=== PATIENT | male | born 1945 | race African-American/Black ===

== ENCOUNTER 2021-11-17 18:50 | Inpatient (IN) ==
[2021-11-17] MEDS ORDERED: SODIUM CHLORIDE 0.9% 1,000 ML IV STA ×2 (19:26→19:53)
[2021-11-17 19:30] LABS: Basophils % 0.2 % (0.0-0.8); Hematocrit 38.8 VOL% (42.0-52.0); Hemoglobin 12.6 GM/DL (14.0-18.0); Immature Granulocytes % 0.8 %; Immature Granulocytes Absolute 0.16 #; Lymphocytes # 0.9 10*3/uL (1.4-4.0); Lymphocytes % 4.4 % (21.2-54.2); Mean Corpuscular HGB Conc 32.5 GM/DL (32-36); Mean Corpuscular Volume 82.2 FL (87-102); Mean Platelet Volume 9.6 FL (9.6-12.0); Monocytes # 1.5 10*3/uL (0.11-0.8); Monocytes % 7.2 % (1.7-12.7); NRBC # 0.02 10*3/uL; Neutrophils % 87.4 % (38.7-73.9); Platelet Count 347 T/CUMM (130-400); Red Blood Count 4.72 MC/CUMM (3.8-5.5); Red Cell Distribution Width 17.1 % (9.3-17.3); White Blood Count 21.1 T/CUMM (4-12)
[2021-11-17 19:35] LABS: Bilirubin,Urine Negative (Negative); Blood, Urine Trace mg/dL (Negative); Glucose,Urine (UA) Negative (Negative); Ketones,Urine Negative (Negative); Nitrite,Urine Negative (Negative); Protein,Urine Negative (Negative); Urine Appearance Clear (Clear); Urine Color Yellow (Yellow); Urine Specific Gravity >= 1.030 (1.001-1.035); Urine Urobilinogen 0.2 eU/dL (<2.0)
[2021-11-17 19:37] LABS: Bacteria,Urine Occasional /HPF (Few); Hyaline Casts,Urine 7 /LPF (0-3); RBC,Urine 1 /HPF (0-4); Squamous Epithelial Cell,Urine Occasional /HPF (0-10)
[2021-11-17 19:49] LABS: Barbiturates Screen,Urine Negative (Negative); Benzodiazepines Screen,Urine Negative (Negative); Cannabinoid Screen,Urine Negative (Negative); Opiate Screen,Urine Negative (Negative); Phencyclidine Screen,Urine Negative (Negative)
[2021-11-17] MEDS ORDERED: cefTRIAXone 1,000 MG in SODIUM CHLORIDE 0.9% 100 ML IV STA (19:53)
[2021-11-17 19:58] LABS: Anisocytosis 1+; Band Neutrophils 1 % (0-10); Lymphocytes 6 % (20-55); Platelet Estimate Adequate; Total Cells Counted 100
[2021-11-17 20:11] LABS: Alanine Aminotransferase 18 U/L (16-61); Albumin 4.1 G/DL (3.4-5.0); Alkaline Phosphatase 98 U/L (45-117); Aspartate Amino Transferase 11 U/L (0-37); Blood Urea Nitrogen 222 MG/DL (7-18); Calcium 9.5 MG/DL (8.5-10.1); Carbon Dioxide 8 MMOL/L (21-32); Chloride 124 MMOL/L (98-107); Glucose 284 MG/DL (74-106); Osmolality,Calculated 376.4 MOS/KG (273-304); Sodium 147 MMOL/L (136-145); Total Protein 8.5 G/DL (6.4-8.2)
[2021-11-17 20:14] LABS: Potassium 8.1 MMOL/L (3.5-5.1)
[2021-11-17] MEDS ORDERED: INSULIN REGULAR 10 UNIT, CALCIUM GLUCONATE 1,000 MG in DEXTROSE 10% 250 ML IV ONE (20:23)
[2021-11-17] MEDS ORDERED: DEXTROSE 50% 25 GM/50 ML VIAL IV STA (20:31)
[2021-11-17] MEDS ORDERED: INSULIN REGULAR 100 UNIT/ML IV STA (20:31)
[2021-11-17 20:51] LABS: Arterial Base Excess iSTAT -20 MMOL/L (-2.5-2.5); Arterial Bicarbonate iSTAT 6.1 MMOL/L (20-26); Arterial O2 Saturation iSTAT 98 % (95-100); Arterial PCO2 iSTAT 15 MM HG (35-48); Arterial PO2 iSTAT 128 MM HG (80-95); Arterial Total CO2 iSTAT 7 MMO/L (23-27); Arterial pH iSTAT 7.208 (7.35-7.45)
[2021-11-17] MEDS ORDERED: SODIUM POLYSTYRENE SULFATE 15 GM/60 ML BOTTLE PO STA (21:56)
[2021-11-17] MEDS ORDERED: LACTATED RINGERS 1,000 ML IV ONE (22:00)
[2021-11-17] MEDS ORDERED: SODIUM BICARBONATE 50 MEQ/50 ML VIAL IV STA (22:00)
[2021-11-17] MEDS ORDERED: ALBUTEROL 2.5 MG/3 ML NEB RESP TX PRN (23:23)
[2021-11-17] MEDS ORDERED: ACETAMINOPHEN 325 MG TABLET PO PRN (23:28)
[2021-11-17] MEDS ORDERED: DOCUSATE SODIUM 100 MG CAPSULE PO PRN (23:28)
[2021-11-17] MEDS ORDERED: ONDANSETRON 4 MG/2 ML VIAL IV PRN (23:28)
[2021-11-17] MEDS: SODIUM BICARB INJ 150 MEQ in STERILE WATER INJ 1,000 ML IV SCH (23:35)
[2021-11-17 23:57] LABS: Calcium 9.3 MG/DL (8.5-10.1); Osmolality,Calculated 377.1 MOS/KG (273-304)
[2021-11-18 00:01] LABS: Potassium 6.7 MMOL/L (3.5-5.1)
[2021-11-18] MEDS ORDERED: SODIUM BICARBONATE 50 MEQ/50 ML VIAL IV ONE (00:04)
[2021-11-18] MEDS ORDERED: ALBUTEROL/IPRATROPIUM 3 ML NEB RESP TX SCH (01:00)
[2021-11-18 01:23] LABS: Basophils % 0.1 % (0.0-0.8); Hematocrit 35.8 VOL% (42.0-52.0); Hemoglobin 11.2 GM/DL (14.0-18.0); Immature Granulocytes % 0.8 %; Immature Granulocytes Absolute 0.16 #; Lymphocytes # 1.2 10*3/uL (1.4-4.0); Lymphocytes % 6.2 % (21.2-54.2); Mean Corpuscular HGB Conc 31.3 GM/DL (32-36); Mean Corpuscular Volume 85.9 FL (87-102); Monocytes # 1.9 10*3/uL (0.11-0.8); Monocytes % 9.8 % (1.7-12.7); Neutrophils % 83.1 % (38.7-73.9); Platelet Count 285 T/CUMM (130-400); Red Blood Count 4.17 MC/CUMM (3.8-5.5); Red Cell Distribution Width 17.3 % (9.3-17.3); White Blood Count 19.8 T/CUMM (4-12)
[2021-11-18 01:39] LABS: INR 1.1; PT Patient Result 11.9 SECS (10.1-12.1)
[2021-11-18 02:55] LABS: Albumin 3.7 G/DL (3.4-5.0); Bilirubin,Total 0.4 MG/DL (0.20-1.00); Calcium 9.3 MG/DL (8.5-10.1); Risk Ratio 3.31; Thyroid Stimulating Hormone 1.02 uIU/ml (0.358-3.74); Total Protein 7.9 G/DL (6.4-8.2); VLDL Cholesterol 23.8 MG/DL
[2021-11-18 03:07] LABS: Osmolality,Calculated 378.1 MOS/KG (273-304)
[2021-11-18] MEDS ORDERED: GLUCAGON 1 MG VIAL IM PRN (03:17)
[2021-11-18] MEDS ORDERED: DEXTROSE 10% 250 ML BAG IV PRN (03:17)
[2021-11-18 04:20] LABS: Arterial Base Excess iSTAT -11 MMOL/L (-2.5-2.5); Arterial Bicarbonate iSTAT 12.1 MMOL/L (20-26); Arterial O2 Saturation iSTAT 99 % (95-100); Arterial PCO2 iSTAT 21 MM HG (35-48); Arterial PO2 iSTAT 121 MM HG (80-95); Arterial Total CO2 iSTAT 13 MMO/L (23-27); Arterial pH iSTAT 7.367 (7.35-7.45)
[2021-11-18 04:44] LABS: ABG Base Excess -12.3 MMOL/L (-2.5-2.5); ABG HCO3 14.8 MMOL/L (20-26); ABG Oxygen Saturation 99.1 % (95-100); ABG PH 7.364 (7.35-7.45); ABG TCO2 10.5 MMOL/L (23-27)
[2021-11-18 04:49] LABS: ABG PCO2 20.4 MM HG (35-48)
[2021-11-18] MEDS ORDERED: INSULIN LISPRO 100 UNIT/ML SUBCUT SCH (06:00)
[2021-11-18 07:11] LABS: Calcium 9.2 MG/DL (8.5-10.1); Osmolality,Calculated 385.7 MOS/KG (273-304); Potassium 4.9 MMOL/L (3.5-5.1)
[2021-11-18] MEDS: SODIUM BICARB INJ 150 MEQ in STERILE WATER INJ 1,000 ML IV SCH ×3 (07:39→23:25)
[2021-11-18] MEDS ORDERED: MEROPENEM 500 MG in SODIUM CHLORIDE 0.9% 100 ML IV SCH (08:00)
[2021-11-18 11:00] LABS: Calcium 8.9 MG/DL (8.5-10.1); Osmolality,Calculated 374.9 MOS/KG (273-304); Potassium 4.1 MMOL/L (3.5-5.1)
[2021-11-18] MEDS: INSULIN LISPRO 100 UNIT/ML SUBCUT SCH ×3 (11:51→20:45)
[2021-11-18 14:43] LABS: Calcium 8.4 MG/DL (8.5-10.1); Osmolality,Calculated 370.3 MOS/KG (273-304); Potassium 3.5 MMOL/L (3.5-5.1)
[2021-11-18] MEDS: HEPARIN 5,000 UNIT/1 ML VIAL SUBCUT SCH (15:50)
[2021-11-18 18:01] LABS: Calcium 8.2 MG/DL (8.5-10.1); Osmolality,Calculated 357.4 MOS/KG (273-304); Potassium 3.4 MMOL/L (3.5-5.1)
[2021-11-19 04:07] LABS: Basophils % 0.1 % (0.0-0.8); Eosinophils # 0.1 10*3/uL (0.0-0.87); Hematocrit 29.5 VOL% (42.0-52.0); Immature Granulocytes % 0.5 %; Immature Granulocytes Absolute 0.08 #; Lymphocytes # 1.5 10*3/uL (1.4-4.0); Lymphocytes % 10.3 % (21.2-54.2); Mean Corpuscular HGB Conc 33.9 GM/DL (32-36); Mean Corpuscular Volume 79.5 FL (87-102); Mean Platelet Volume 9.8 FL (9.6-12.0); Monocytes # 0.8 10*3/uL (0.11-0.8); Monocytes % 5.2 % (1.7-12.7); Neutrophils % 82.9 % (38.7-73.9); Platelet Count 227 T/CUMM (130-400); Red Blood Count 3.71 MC/CUMM (3.8-5.5); Red Cell Distribution Width 16.1 % (9.3-17.3); White Blood Count 14.7 T/CUMM (4-12)
[2021-11-19] MEDS: HEPARIN 5,000 UNIT/1 ML VIAL SUBCUT SCH ×2 (04:13→16:43)
[2021-11-19 04:25] LABS: Alanine Aminotransferase 33 U/L (16-61); Albumin 2.9 G/DL (3.4-5.0); Alkaline Phosphatase 68 U/L (45-117); Aspartate Amino Transferase 36 U/L (0-37); Bilirubin,Total < 0.39 MG/DL (0.20-1.00); Blood Urea Nitrogen 146 MG/DL (7-18); Calcium 8.5 MG/DL (8.5-10.1); Carbon Dioxide 29 MMOL/L (21-32); Chloride 109 MMOL/L (98-107); Glucose 131 MG/DL (74-106); Osmolality,Calculated 339.6 MOS/KG (273-304); Potassium 3.1 MMOL/L (3.5-5.1); Sodium 146 MMOL/L (136-145)
[2021-11-19] MEDS ORDERED: POTASSIUM CHLORIDE 20 MEQ TABLET PO ONE (04:53)
[2021-11-19] MEDS: SODIUM BICARB INJ 150 MEQ in STERILE WATER INJ 1,000 ML IV SCH (07:36)
[2021-11-19] MEDS: INSULIN LISPRO 100 UNIT/ML SUBCUT SCH ×4 (07:36→20:16)
[2021-11-19] MEDS: LACTATED RINGERS 1,000 ML IV SCH ×2 (09:41→23:52)
[2021-11-19] MEDS ORDERED: VANCOMYCIN INJ 1,500 MG in SODIUM CHLORIDE 0.9% 500 ML IV ONE (10:30)
[2021-11-20] MEDS: HEPARIN 5,000 UNIT/1 ML VIAL SUBCUT SCH ×2 (04:30→16:22)
[2021-11-20 06:22] LABS: Basophils % 0.2 % (0.0-0.8); Eosinophils # 0.1 10*3/uL (0.0-0.87); Eosinophils % 1.1 % (0.00-10.9); Hematocrit 30.6 VOL% (42.0-52.0); Hemoglobin 10.2 GM/DL (14.0-18.0); Immature Granulocytes % 0.9 %; Lymphocytes # 1.2 10*3/uL (1.4-4.0); Mean Corpuscular HGB Conc 33.3 GM/DL (32-36); Mean Corpuscular Volume 81.6 FL (87-102); Mean Platelet Volume 9.9 FL (9.6-12.0); Monocytes # 0.8 10*3/uL (0.11-0.8); Monocytes % 7.1 % (1.7-12.7); Neutrophils % 80.7 % (38.7-73.9); Platelet Count 201 T/CUMM (130-400); Red Blood Count 3.75 MC/CUMM (3.8-5.5); Red Cell Distribution Width 15.9 % (9.3-17.3); White Blood Count 11.5 T/CUMM (4-12)
[2021-11-20 06:42] LABS: Alanine Aminotransferase 29 U/L (16-61); Albumin 2.9 G/DL (3.4-5.0); Alkaline Phosphatase 67 U/L (45-117); Aspartate Amino Transferase 24 U/L (0-37); Bilirubin,Total < 0.39 MG/DL (0.20-1.00); Blood Urea Nitrogen 90 MG/DL (7-18); Calcium 8.5 MG/DL (8.5-10.1); Carbon Dioxide 29 MMOL/L (21-32); Chloride 111 MMOL/L (98-107); Glucose 201 MG/DL (74-106); Osmolality,Calculated 321.7 MOS/KG (273-304); Potassium 3.3 MMOL/L (3.5-5.1); Sodium 145 MMOL/L (136-145); Total Protein 5.8 G/DL (6.4-8.2)
[2021-11-20] MEDS: INSULIN LISPRO 100 UNIT/ML SUBCUT SCH ×4 (08:00→21:02)
[2021-11-20] MEDS ORDERED: POTASSIUM CHLORIDE 20 MEQ TABLET PO ONE (09:42)
[2021-11-20] MEDS: LACTATED RINGERS 1,000 ML IV SCH ×3 (10:20→17:20)
[2021-11-21] MEDS: HEPARIN 5,000 UNIT/1 ML VIAL SUBCUT SCH ×2 (04:44→16:00)
[2021-11-21] MEDS: LACTATED RINGERS 1,000 ML IV SCH ×2 (04:48→18:16)
[2021-11-21 05:19] LABS: Basophils % 0.3 % (0.0-0.8); Eosinophils # 0.2 10*3/uL (0.0-0.87); Eosinophils % 2.1 % (0.00-10.9); Hemoglobin 9.9 GM/DL (14.0-18.0); Immature Granulocytes % 0.9 %; Immature Granulocytes Absolute 0.09 #; Lymphocytes # 1.5 10*3/uL (1.4-4.0); Lymphocytes % 14.2 % (21.2-54.2); Mean Corpuscular HGB Conc 31.9 GM/DL (32-36); Mean Corpuscular Volume 84.5 FL (87-102); Mean Platelet Volume 9.7 FL (9.6-12.0); Monocytes # 0.8 10*3/uL (0.11-0.8); Monocytes % 7.6 % (1.7-12.7); Neutrophils % 74.9 % (38.7-73.9); Platelet Count 190 T/CUMM (130-400); Red Blood Count 3.67 MC/CUMM (3.8-5.5); White Blood Count 10.4 T/CUMM (4-12)
[2021-11-21 05:35] LABS: Calcium 8.6 MG/DL (8.5-10.1); Osmolality,Calculated 302.7 MOS/KG (273-304); Potassium 3.8 MMOL/L (3.5-5.1)
[2021-11-21] MEDS: INSULIN LISPRO 100 UNIT/ML SUBCUT SCH ×4 (08:19→20:57)
[2021-11-22] MEDS: HEPARIN 5,000 UNIT/1 ML VIAL SUBCUT SCH ×2 (04:54→15:39)
[2021-11-22] MEDS: LACTATED RINGERS 1,000 ML IV SCH (04:54)
[2021-11-22 05:06] LABS: Basophils % 0.3 % (0.0-0.8); Eosinophils # 0.3 10*3/uL (0.0-0.87); Eosinophils % 2.7 % (0.00-10.9); Hematocrit 30.1 VOL% (42.0-52.0); Hemoglobin 9.4 GM/DL (14.0-18.0); Immature Granulocytes % 1.3 %; Immature Granulocytes Absolute 0.14 #; Lymphocytes # 1.9 10*3/uL (1.4-4.0); Lymphocytes % 16.7 % (21.2-54.2); Mean Corpuscular HGB Conc 31.2 GM/DL (32-36); Mean Corpuscular Volume 86.5 FL (87-102); Mean Platelet Volume 10.3 FL (9.6-12.0); Monocytes # 0.7 10*3/uL (0.11-0.8); Monocytes % 6.6 % (1.7-12.7); Neutrophils % 72.4 % (38.7-73.9); Platelet Count 190 T/CUMM (130-400); Red Blood Count 3.48 MC/CUMM (3.8-5.5); Red Cell Distribution Width 16.2 % (9.3-17.3); White Blood Count 11.2 T/CUMM (4-12)
[2021-11-22 05:33] LABS: Calcium 8.1 MG/DL (8.5-10.1); Osmolality,Calculated 297.6 MOS/KG (273-304); Potassium 4.2 MMOL/L (3.5-5.1)
[2021-11-22] MEDS: INSULIN LISPRO 100 UNIT/ML SUBCUT SCH ×4 (07:59→20:38)
[2021-11-23] MEDS: HEPARIN 5,000 UNIT/1 ML VIAL SUBCUT SCH ×2 (05:19→16:53)
[2021-11-23] MEDS: INSULIN LISPRO 100 UNIT/ML SUBCUT SCH ×3 (08:56→16:54)
[2021-11-23 12:00] VITALS: BP 130/74
== END 2021-11-23 17:08 | disposition home health service (06) | DRG 682 ==
LOC: EDUNIT# → EDBD → N.ED 18:50 → SUATTDRO 22:17 → N.ICU 22:17 → N.3E 11-20 16:52
PROVIDERS: ADMIT Family Medicine; ATTEND Internal Medicine